=== PATIENT | male | born 1980 | race Caucasian/White ===

== ENCOUNTER 2016-07-05 08:45 | Day surgery (SDC) | payer OTHER ==
[~2016-07-05 08:45] MED LIST: RINGERS SOLUTION,LACTATED 1,000 ML IV PRN; ceFAZolin SODIUM 2 GM in DEXTROSE 5 % IN WATER 50 ML IV PRN
[2016-07-05] MEDS ORDERED: BUPIVACAINE HCL 50 ML VIAL IJ ONE (11:02)
[2016-07-05] MEDS ORDERED: LIDOCAINE HCL 50 ML VIAL IJ ONE (11:03)
[2016-07-05 12:45] VITALS: BP 132/79
== END 2016-07-05 08:46 | disposition home or self-care (01) ==
LOC: AMB 08:45
PROVIDERS: ATTEND Student in an Organized Health Care Education/Training Program
PROC: 0QBQ0ZZ Excision of Right Toe Phalanx, Open Approach (ICD-10-PCS; principal; 2016-07-05 11:10)
DX: M21.611 Bunion of right foot (principal); I10 Essential (primary) hypertension; Z68.28 Body mass index [BMI] 28.0-28.9, adult